=== PATIENT | female | born 1965 | race Two or more races ===

== ENCOUNTER 2024-12-30 09:48 | Emergency (ER) | payer OTHER ==
[~2024-12-30] VITALS: Ht 170.2 cm; Wt 83.9 kg
[~2024-12-30 09:48] MED LIST: AMLODIPINE BES2.5 MG; AVALIDE 150-12.1 TA1
[2024-12-30] MEDS ORDERED: XARELTO10 M1 (10:10)
[2024-12-30] MEDS ORDERED: DEXAMETHASONE SODIUM PHOSPHATE 4 MG/ML VIAL IM STA (11:10)
[2024-12-30] MEDS ORDERED: DEXAMETHASONE SODIUM PHOSPHATE 4 MG/ML VIAL ONE (11:48)
== END 2024-12-30 12:15 | disposition home or self-care (01) ==
LOC: ER 09:48
DX: M65.4 Radial styloid tenosynovitis [de Quervain] (principal)